=== PATIENT | female | born 1960 | race Caucasian/White ===

== ENCOUNTER → 2020-12-02 10:48 | Outpatient (CLI) | payer OTHER, SELFPAY ==
--- NOTE | 2020-12-02 | DI.MG.S_ITS ---
UNILATERAL RIGHT DIGITAL SCREENING MAMMOGRAM 3D/2D WITH CAD POST MASTECTOMY: 12/02/2020 CLINICAL: Routine screening. Personal history of left breast cancer. Comparison is made to exams dated: 08/10/2017 mammogram, 08/23/2018 mammogram, and 10/24/2019 mammogram - [facility]. There are scattered fibroglandular elements in right breast. Current study was also evaluated with a Computer Aided Detection (CAD) system. There is a 1 cm oval high density asymmetry with a spiculated and indistinct margin in the right breast middle depth superior region seen on the mediolateral oblique view only. This is more prominent and increased in size. No other significant masses or calcifications are seen in the breast. IMPRESSION: INCOMPLETE: NEEDS ADDITIONAL IMAGING EVALUATION The 1 cm oval high density asymmetry in the right breast is indeterminate. Additional views with possible ultrasound are recommended. This exam was interpreted at Station ID: [id number]. NOTE: For mammograms, a report in lay terms will be sent to the patient. Approximately 15% of breast malignancies will not be visualized mammographically. In the management of a palpable breast mass, a negative mammogram must not discourage biopsy of a clinically suspicious lesion. Electronically Signed By: Rin benson/:12/02/2020 12:04:54 letter sent: Additional Imaging Needed ACR BI-RADS Category 0: Incomplete 3340F
== END ==
PROVIDERS: PCP Nurse Practitioner Family; Referring Provider Nurse Practitioner Family; Visit Provider Nurse Practitioner Family
DX: Z12.31 Encounter for screening mammogram for malignant neoplasm of breast (principal); Z85.3 Personal history of malignant neoplasm of breast
CPT/HCPCS: 77063; 77067

== ENCOUNTER → 2020-12-11 09:00 | Outpatient (CLI) | payer OTHER, SELFPAY ==
--- NOTE | 2020-12-11 | DI.US.S_ITS ---
LIMITED ULTRASOUND OF RIGHT BREAST: 12/11/2020 CLINICAL: Patient returns today to evaluate a focal asymmetry in the right breast. Comparison is made to exams dated: 12/11/2020 mammogram, 12/02/2020 mammogram - [facility], 10/24/2019 mammogram, 08/23/2018 mammogram, 08/10/2017 mammogram - [facility], and 05/06/2004 stereotactic biopsy - [facility]. Color flow and real-time ultrasound of the right breast 10-12 o'clock region were performed. Haynes scale images of the real-time examination were reviewed. There is a 1 cm mass in the right breast at 11-12 o'clock middle depth on the mammogram which has no sonographic correlate. IMPRESSION: SUSPICIOUS OF MALIGNANCY The 1 cm asymmetry/mass in the right breast is only seen mammographically and is suspicious of malignancy. A stereotactic biopsy is recommended. This exam was interpreted at Station ID: [id number]. Electronically Signed By: Francisco Martinez M.D. jr/:12/11/2020 11:51:26 letter sent: Biopsy Required Ultrasound BI-RADS: 4 Suspicious for malignancy
--- NOTE | 2020-12-11 09:01 | DI.MG.S_ITS ---
UNILATERAL RIGHT DIGITAL DIAGNOSTIC MAMMOGRAM 3D/2D WITH ADDITIONAL VIEWS POST MASTECTOMY: 12/11/2020 CLINICAL: Additional evaluation requested from prior study. Comparison is made to exams dated: 12/02/2020 mammogram - [facility], 10/24/2019 mammogram, and 08/23/2018 mammogram - [facility]. There are scattered fibroglandular elements in right breast. There is a stable 1 cm oval high density asymmetry with a spiculated and indistinct margin in the right breast middle depth superior region seen on the mediolateral oblique view only. No other significant masses or calcifications are seen in the breast. IMPRESSION: INCOMPLETE: NEEDS ADDITIONAL IMAGING EVALUATION The stable 1 cm oval high density asymmetry in the right breast is indeterminate. An ultrasound is recommended and is scheduled to follow. This exam was interpreted at Station ID: [id number]. NOTE: For mammograms, a report in lay terms will be sent to the patient. Approximately 15% of breast malignancies will not be visualized mammographically. In the management of a palpable breast mass, a negative mammogram must not discourage biopsy of a clinically suspicious lesion. Electronically Signed By: Francisco Martinez M.D. jr/:12/11/2020 11:47:08 letter sent: Additional Imaging Needed ACR BI-RADS Category 0: Incomplete [id number]
== END ==
PROVIDERS: PCP Nurse Practitioner Family; Referring Provider Nurse Practitioner Family; Visit Provider Nurse Practitioner Family
DX: R92.8 Other abnormal and inconclusive findings on diagnostic imaging of breast (principal); N63.11 Unspecified lump in the right breast, upper outer quadrant
CPT/HCPCS: 76642; 77065; G0279